=== PATIENT | female | born 1985 | race Two or more races ===

== ENCOUNTER 2018-04-30 17:20 | Emergency (ER) | payer MEDICAID ==
[~2018-04-30] VITALS: Ht 167.6 cm; Wt 62.0 kg
[2018-04-30] MEDS ORDERED: KETOROLAC 60MG/2ML VIAL IM ONE (21:45)
[2018-04-30 22:08] VITALS: BP 125/78
== END 2018-04-30 22:09 | disposition home or self-care (01) ==
LOC: ER 17:20
DX: L02.214 Cutaneous abscess of groin (principal)
CPT/HCPCS: 96372; 99283; J1885; Z7610